=== PATIENT | male | born 1995 | race Caucasian/White ===

== ENCOUNTER 2018-04-28 14:22 | Emergency (ER) | payer OTHER ==
[~2018-04-28] VITALS: Ht 190.5 cm; Wt 83.9 kg
[2018-04-28] MEDS ORDERED: ZOLOFT25 MG (14:54)
[2018-04-28] MEDS ORDERED: KETO10TA2 PO (18:14)
[2018-04-28] MEDS ORDERED: ZITHROMAX500 MG PO (18:14)
== END 2018-04-28 18:40 | disposition home or self-care (01) ==
LOC: ER 14:22
DX: J03.90 Acute tonsillitis, unspecified (principal); J11.1 Influenza due to unidentified influenza virus with other respiratory manifestations